=== PATIENT | female | born 1960 | race Two or more races ===

== ENCOUNTER 2016-06-02 10:53 | Emergency (ER) | payer OTHER ==
[2016-06-02] MEDS ORDERED: CLONIDINE HCL 0.1 MG TABLET ONE (12:33)
[2016-06-02] MEDS ORDERED: OXYMETAZOLINE HCL 0.05% 30 SPRAYS/BOT NS ONE (12:33)
[2016-06-02 13:14] LABS: ABSOLUTE NEUTROPHIL COUNT 5.6 K/mm3 (1.8-7.7); BASO % 0.5 % (0.2-1.0); EOS # 0.1 (0.0-0.5); EOS % 1.1 % (0.9-2.9); IMM NEUT% 0.3 % (0-1); LYMPH # 1.5 (1.0-4.8); LYMPH % 20.1 % (15-45); MEAN CELL VOLUME 87.3 fl (81.0-99.0); MEAN CORPUSCULAR HEMOGLOBIN 29.8 pg (27.0-31.0); MEAN CORPUSCULAR HGB CONC 34.1 g/dl (33.0-37.0); MONO # 0.4 (0.0-0.8); MONO % 4.6 % (4-12); NEUT % 73.4 % (43-75); PLATELET COUNT 229 K/mm3 (130-400); RED CELL DISTRIBUTION WIDTH 13.3 % (11.5-14.5)
[2016-06-02 14:04] LABS: CALCIUM 9.9 mg/dL (8.6-10.3)
[2016-06-02] MEDS ORDERED: HYDRALAZINE HCL 20 MG/1 ML VIAL ONE (14:20)
[2016-06-02] MEDS ORDERED: SODIUM CHLORIDE 0.9% 1,000 ML ONE (14:48)
== END 2016-06-02 16:25 | disposition home or self-care (01) ==
LOC: ED 10:53
DX: R04.0 Epistaxis (principal); I10 Essential (primary) hypertension; E11.9 Type 2 diabetes mellitus without complications
CPT/HCPCS: 85025; 80048; 99284 ×2; 96374; 96361; A9270 ×2; J0360; J7030